=== PATIENT | female | born 1990 | race Caucasian/White ===

== ENCOUNTER 2021-03-23 18:30 | Emergency (ER) | payer OTHER ==
[2021-03-24 20:40] LABS: Chlamydia by PCR Not Detected (NotDetected); GC by PCR Not Detected (NotDetected)
== END 2021-03-23 20:40 | disposition short-term general hospital (02) ==
LOC: BURERS 18:30
DX: N81.4 Uterovaginal prolapse, unspecified (principal)
CPT/HCPCS: 87491; 87591; 99284